=== PATIENT | male | born 1955 | race Caucasian/White ===

== ENCOUNTER → 2017-09-10 | Outpatient (CLI) | payer OTHER ==
[~2017-09-10] MED LIST: ADULT LOW DOSE81 MG PO; CELEBREX 200 M200 M1 PO; COUMADIN 3 MG TA3 MG PO; FLONASE 0.05%50 MCG NASAL; HYDROCHLOROTH12.5 M1 PO; LEVAQUIN 750 M750 MG PO; LIORESAL 10 MG10 MG PO; LISINOPRIL20 MG PO; LOVENOX SQ; MINOCIN100 MG PO; MOBIC7.5 MG PO; NORCO 5-325 TA1 EACH PO; NORVASC10 MG PO
== END ==
LOC: M.ULTRA 09:30
DX: I15.0 Renovascular hypertension (principal)

== ENCOUNTER → 2018-04-03 | Outpatient (CLI) | payer OTHER | LOC: M.MRI 08:12 | DX: S83.232A Complex tear of medial meniscus, current injury, left knee, initial encounter (principal); M17.12 Unilateral primary osteoarthritis, left knee; M25.462 Effusion, left knee; M65.862 Other synovitis and tenosynovitis, left lower leg; I10 Essential (primary) hypertension; E55.9 Vitamin D deficiency, unspecified; X58.XXXA Exposure to other specified factors, initial encounter; Y93.89 Activity, other specified; Y92.89 Other specified places as the place of occurrence of the external cause; Y99.8 Other external cause status; Z79.01 Long term (current) use of anticoagulants; Z68.39 Body mass index [BMI] 39.0-39.9, adult ==